=== PATIENT | male | born 1960 | race Caucasian/White ===

== ENCOUNTER 2023-09-26 10:11 | Emergency (ER) | payer OTHER, SELFPAY ==
[2023-09-26] VITALS (14 sets, daily range): BP systolic 92–119; BP diastolic 75–88; PULSE 138–170; RESP 16–18; TEMP 36.7; O2SAT 95–98; BMI 27.5
[2023-09-26 10:41] LABS: Lactate* 1.5 mmol/L (0.5-1.9)
[2023-09-26] MEDS: 0.9 % SODIUM CHLORIDE 1000 ml 1,000 ML IV (10:47)
[2023-09-26] MEDS: METOPROLOL TARTRATE 1 MG/ML inj 5 MG IVP (10:47)
[2023-09-26 10:50] LABS: Basophils Absolute Auto 0.02 K/uL (0.00-0.30); Basophils Percent Auto 0.3 % (0.0-3.0); Eosinophils Absolute Auto 0.09 K/uL (0.00-0.50); Eosinophils Percent Auto 1.3 % (0.0-7.0); Hematocrit 46.4 % (37.0-53.0); Hemoglobin* 15.7 gm/dL (13.5-17.5); Immature Granulocytes Abs Auto 0.01 K/uL (0.00-0.30); Immature Granulocytes Pct Auto 0.1 %; Lymphocytes Percent Auto 31.4 % (20-44); Mean Corpuscular HGB Conc 34 gm/dL (32-36); Mean Corpuscular Hemoglobin 30 pg (26-34); Mean Corpuscular Volume 90 fL (80-100); Monocytes Percent Auto 11.7 % (0.0-11.0); Neutrophils Absolute Auto 3.68 K/uL (1.7-7.0); Neutrophils Percent Auto 55.2 % (42.0-72.0); Platelet Count* 281 K/uL (140-440); RDW Coefficient of Variation % 12.8 % (11.5-15.5); Red Blood Count 5.17 m/uL (4.30-5.90); White Blood Count* 6.68 K/uL (4.50-11.00)
[2023-09-26 10:58] LABS: Albumin* 4.6 g/dL (3.3-5.0)
[2023-09-26 10:59] LABS: Chloride* 110 mmol/L (96-114); Potassium* 4.2 mmol/L (3.6-5.1); Sodium* 140 mmol/L (135-149)
[2023-09-26 11:01] LABS: Anion Gap 11 mEq/L (7-15); Aspartate Amino Transferase* 29 U/L (12-35); Bilirubin Direct* 0.3 mg/dL (0.0-0.5); Bilirubin Total* 1.5 mg/dL (0.1-1.5); Carbon Dioxide* 19 mmol/L (20-32); Creatinine* 0.9 mg/dL (0.5-1.5); Est. Creatinine Clearance* 104.32; Estimated Glomerular Filt Rate 98 ml/min; Total Protein* 7.4 g/dL (6.0-8.3)
[2023-09-26 11:02] LABS: Alanine Aminotransferase* 19 U/L (4-50); Alkaline Phosphatase* 45 U/L (40-150); Blood Urea Nitrogen* 15 mg/dL (7-30); Calcium* 8.8 mg/dL (8.4-10.6); Glucose* 128 mg/dL (60-115)
[2023-09-26 11:03] LABS: Slide Review Reflex No
[2023-09-26 11:15] LABS: Troponin I* < 0.01 ng/mL (0.01-0.04)
--- OUTSIDE RECORDS SUMMARY | 2023-09-26 11:48 | XMS_ITS | Clinical Summary ---
Author Organization [employer] [facility] Address [place], [place] [address] Care Team Providers Care Counselor Education Professor Name Role Phone Spencer Ibarra MD Unavailable Shila Omid Luna MD Primary Care Provider [phone] Allergies Active Allergy Reactions Criticality Noted Date Comments Adhesive Tape-Silicones Contact Dermatitis 01/01 Patient reports blisters Pseudoephedrine Rash,Runny Nose 10/30/2010 Azu-Hyvwqzjoa-Hn-Acetamin ophen Rash 09/25/2011 Medications Medication Sig Dispensed Refills Start Date End Date Status multivitamin (MVI) tablet Take 1 tablet by mouth once daily. 0 09/25/2011 Active aspirin chewable 81 mg chewable tabletIndications:Pa roxysmal atrial fibrillation (HC) Take 1 tablet by mouth once daily with a meal. 0 01/01/2019 Active omeprazole (PRILOSEC) 20 mg Delayed-Release capsuleIndications:g astroesophageal reflux disease Take 20 mg by mouth once daily. Active oxyCODONE (ROXICODONE) 5 mg immediate release tabletIndications:Mu ltiple lipomas Take 1-2 Tablets (5-10 mg) by mouth every 4 hours if needed for Pain. 20 Tablet 02/05/2023 Active Additional Information Patient not taking.Reported on 02/19/2023 Active Problems Problem Noted Date Diagnosed Date Eosinophilic esophagitis 01/31/2023 Inflammatory pseudotumor of colon 01/13/2023 Multiple lipomas 09/24/2012 Neck pain 09/25/2011 Atrial fibrillation Resolved Problems Problem Noted Date Diagnosed Date Resolved Date Dizzy 09/25/2011 01/11/2023 Immunizations Name Administration Dates Next Due Amb Influenza, Inact (Intrad ermal)(age 18-64 Yrs)(Flu Clinic Only) 12/30/2014 Anthrax Vaccine 01/24/2010,08/20/2009,07/15/2009 Hepatitis A (Adult) 12/20/2002, 3,08/05/2000,04/12 Hepatitis A, Unspecified 08/05/2000 Hepatitis B (Adult) 01/24/2010, 0,07/15/2009,09/03,08/05/2000 Hepatitis B, Unspecified 09/03/2000,08/05/2000 Influenza A (H1N1), Inactiva tonya (Age >=3 Years) 04/21/2009 Influenza Virus, Unspecified 01/24/2014, 02/13/2013,01/11/2012,12/15,05/02/2010,01/19/2009 Influenza, IIV3 (Age 6-35 mos) 01/19/2009 Influenza, IIV4 01/01/2019,12/03/2017,01/21/2017 Influenza, Whole Virus 01/26/2003,08/15/2002 Influenza, split (incl. caleb fied surface antigen) 11/24/2009,05/18/2006,02/18/2005 Influenza,LAIV3 Live Intrana josue (Flumist) 01/07/2009,02/14/2008,03/14/2007 MMR 03/15/1991,05/12/1981 Meningococcal Vaccine (Menomune) 02/21/1982 Oral Polio Vaccine 05/27/1984,02/21/1982, 982 Plague 11/28/1988,11/08/1983,05/17/1983 Polio Virus, Unspecified 05/27/1984 Smallpox (Vaccinia) Live [id number] 08/20/2009, Td (Age >=7 Years) 06/14/2002,06/01/2000, 992 Tdap 06/02/2021, 2,04/11/2010,04/01,06/01/2000,03/31/1992 Typhoid (injectable) 12/17/2008,08/05/2000 Typhoid Parenteral,Killed 11/16/2006,,06/14/2002,03/15,06/14/1987 Typhoid, Unspecified 08/05/2000,03/15/1991,06/13 Typhus, Historical 08/05/2000,03/15/1991, 988 Yellow Fever 08/05/2000,03/15/1991 Family History Medical History Relation Name Comments Cancer Father Brain? tumor Atrial fibrillation Mother COPD Mother Macular degeneration Mother Diabetes Paternal Grandmother Relation Name Status Comments Father Mother Paternal Grandmother Social History Tobacco Use Types Packs/Day Years Used Date Smoking Tobacco: Never Smokeless Tobacco: Never Tobacco Cessation:Counseling Given: Yes Alcohol Use Standard Drinks/Week Comments Yes 5 (1 standard drink = 0.6 oz pur e alcohol) 5-10 drinks per week PHQ-2 Answer Date Recorded PHQ-2 TOTAL SCORE 0 01/11/2023 Social Connections Answer Date Recorded Frequency of Communication with Friends and Fami ly 0 01/11/2023 Financial Resource Strain Answer Date R ecorded Difficulty of Paying Living Expenses 3 01/11/2023 Difficulty of Paying Living Expenses Not on file 01/11/2023 Food Insecurity Answer Date Recorded Worried About Running Out of Food in the Last Ye ar 1 01/11/2023 Transportation Needs Answer Date Record ed Lack of Transportation (Medical) 1 01/11/2023 Housing Stability Answer Date Recorded Unable to Pay for Housing in the Last Year 1 01/11/2023 Sex and Gender Information Value Date Recorded Sex Assigned at Not on file Gender Identity Not on file Sexual Orientation Not on file Obstetrics History Last Filed Vital Signs Vital Sign Reading Time Taken Comments Blood Pressure 126/62 02/19/2023 8:57 AM INTERNET APPLICATION DEVELOPER Pulse 80 02/19/2023 8:57 AM INTERNET APPLICATION DEVELOPER Temperature 36.5 ??C (97.7 ??F) 02/05/2023 2:00 PM CS T Respiratory Rate 16 02/19/2023 8:57 AM INTERNET APPLICATION DEVELOPER Oxygen Saturation 97% 02/19/2023 8:57 AM INTERNET APPLICATION DEVELOPER Inhaled Oxygen Concentration - - Weight 101.2 kg (223 lb) 02/19/2023 8:57 AM INTERNET APPLICATION DEVELOPER Height 188 cm (6' 2) 02/05/2023 11:46 AM INTERNET APPLICATION DEVELOPER Body Mass Index 28.63 02/05/2023 11:46 AM INTERNET APPLICATION DEVELOPER Plan of Treatment Health Maintenance Due Date Last Done Comments HIV for age 15-65 1977 Zoster (shingles) series for age 50+ (1 of 2) 2012 COVID-19 vaccine series (1 - 2022-24 season) 2022 Influenza for age 50-64 12/01/2023 01/02/20 19, 12/03/2017, 01/21/2017, Additional history exists Depression screening for age 12+ 01/12/2024 01/11/2023, 01/01/2019, 01/06/2018, Additional history exists BMI (ht and wt on same day) for age 18+ 01/30/2024 01/29/2023, 01/11/2023, 08/30/2021, Additional history exists Colonoscopy through age 75 08/10/2025 08/10/2022, Lipids for age 45-75 01/12/2028 01/11/2023, 01/01/2019, 12/29/2014, Additional history exists Tetanus booster 06/03/2031 06/02/2021, 11/30, 04/11/2010 (Completed outside of [facility]), Additional history exists Hepatitis C screening for age 18-79 Completed 12/29/2014 Tdap Completed 06/02/2021, 11/30, 04/11/2010, Additional history exists Pneumococcal series for age 6-64 Aged Out No longer eligible based on patient's age to complete this topic Procedures Procedure Name Priority Date/Time Associated Diagnosis Comments LIPID PANEL W REFLEX MEASURED LDL Routine 01/11/2023 10:38 AM CDT Encounter for screening for lipoid disorders SCAN-COLONOSCOPY 08/10/2022 8:00 AM CDT ANTI HCV Routine 12/29/2014 11:49 AM CDT Need for hepatitis C screening test from Last 3 Months or Most Recently Relevant to Health Maintenance Results * (ABNORMAL) LIPID PANEL W REFLEX MEASURED LDL ([id number]) (01/11/2023 10:38 AM CDT) Pathologist [facility] CHOLESTEROL,TOTAL 204(H) 100 - 199 mg/dL 01/11/2023 11:13 AM [facility] Comment: Cholesterol, Total Reference Ranges Desirable <200 mg/dL Borderline 200-239 mg/dL High >=240 mg/dL TRIGLYCERIDES 133 <150 mg/dL 01/11/2023 11:13 AM [facility] HDL CHOLESTEROL 41 >40 mg/dL 11:13 AM [facility] NON-HDL CHOLESTEROL 163(H) <145 mg/dl 01/11/2023 11:13 AM [facility] CHOL/HDL RATIO 4.98(H) <4.50 01/11/2023 11:13 AM [facility] LDL CHOLESTEROL 136(H) <=130 mg/dL 01/11/2023 11:13 AM [facility] VLDL CHOLESTEROL 27 <=30 mg/dL 01/11/2023 11:13 AM [facility] PROVIDER ORDERED STATUS RANDOM 01/11/2023 11:13 AM [facility] Blood BLOOD SPECIMEN / Unknown Butterfly / Unknown 01/11/2023 10:38 AM CDT 01/11/2023 10:43 AM CDT Omid Oneil MD CHEMISTR[facility] [address] [place] [address] * SCAN-COLONOSCOPY (08/10/2022 8:00 AM CDT) Narrative Procedure Note Jv Gregorio MBBS - 08/10/2022 7:11 AM CDT [facility] [address], [address], [place] [address] Patient Name: Sekou Olivarez Gender: Male Exam Date: 08/10/2022 Visit Number: [id number] Age: 61 Years Date of : 1960 Attending MD: Jv Gregorio MD Medical Record#: [id number] Procedure: Colonoscopy Indications: Colorectal cancer screening Referring MD: Referral Self Primary MD: Rafa Martines MD Medications: Intra Procedure Medications: Patient received monitored anesthesia care. Complications: No immediate complications Procedure: An examination of the heart and lungs was performed and found to be withinacceptable limits. . The patient was therefore deemed a reasonablecandidate for endoscopy and sedation. The risks and benefits of the procedure were explained to the patient.After obtaining informed consent, the patient received monitoredanesthesia care and I passed the scope without difficulty via the rectum to the cecum. The appendiceal orificeand ic valve were identified. The scope was retroflexed during theexamination The quality of the prep was good (Scot/Gat Split). This was a complete examination throughout the entire colon. Findings: Polyp location: cecum. Quantity: 1. Size: 8 mm. Polyp shape: sessile. Maneuver: polypectomy was performed with a cold snare. Removal: complete. Retrieval: complete. Bleeding: none. Polyp location: sigmoid. Quantity: 1. Size: 11-15 mm. Polyp shape:pedunculated. Maneuver: polypectomy was performed with a hot snare . Removal: complete. Retrieval: complete. Bleeding: none. 1 hemoclip placed at sigmoid polypectomy site to prevent post- polypectomybleeding. Diverticulosis. Location: - sigmoid. Quantity: few. Noinflammation present. Hemorrhoids. Internal hemorrhoids without bleeding. Impression: Colorectal polyps Diverticulosis of colon without diverticulitis Hemorrhoids, internal Preliminary Plan: The patient and their physician will receive a copy of the pathologyreport as well as pathology-based recommendations for future screening orsurveillance. Pathology Results: A: COLON, SIGMOID, POLYP: 1. Tubular adenoma which is an advanced adenoma due to size (seecomment) 2. Negative for high grade dysplasia and invasive malignancy 3. Per the colonoscopy report: a. Polyp size: 11-15 mm b. Resection: Complete c. Retrieval: Complete B: COLON, CECUM, POLYP: 1. Inflammatory polyp 2. Negative for dysplasia COMMENTS A. Advanced adenoma of the colorectum is defined by the [employer] Collegeof Gastroenterology (ACG) as an adenoma that is 1 cm or more in size,contains an appreciable villous component, or has high grade dysplasia(Shlomo GARZA; Polyp Guideline: Diagnosis, Treatment, and Surveillance forPatients with Colorectal Polyps. Am J [id number];95(11):8218-5543). This polyp qualifies as such. Patients withadvanced adenomas are at increased risk for synchronous and metachronousadditional advanced adenomas. Appropriate follow-up is suggested. MICROSCOPIC A: Performed B: Performed Electronically signed by: Estee Aguirre MD Interpreted at [facility], [address] [place] [address] Orders Instruction(s)/Education: Instruction/Education Timeframe Assessment Colon Polyps K63.5 Diverticulosis/Diverticulitis K57.30 Hemorrhoids K64.8 Final Plan: Repeat colonoscopy in 3 years. We will attempt to contact you at appropriate intervals via U.S. mail. Wemay not be able to find you or contact you at that time, therefore youshould know that the responsibility for following our recommendation restswith you. If you don't hear from us at the time your procedure is due,please contact our office to schedule an appointment. If your contactinformation should change, please contact our office so that we can updateyour record. _Electronically signed by: Jv Gregorio MD 08/10/2022 cc: Rafa Martines MD Jv HOLGUIN OTHER * ANTI HCV [[id number]] (12/29/2014 11:49 AM CDT) HEPATITIS C ANTIBODY Non-Reacti ve Non-Reacti ve 12/29/2014 4:32 PM CDT [facility] Blood specimen (specimen) BLOOD SPECIMEN / Unknown Venipuncture / Unknown 12/29/2014 11:49 AM CDT 12/29/2014 11:49 AM CDT Narrative [facility] [employer] [facility] - 12/29/2014 4:32 PM CDT Antibodies to HCV not detected; does not exclude the possibility of exposure to HCV. Truman Givens MD [facility] [address] [place] [address], [place] from Last 3 Months or Most Recently Relevant to Health Maintenance Advance Directives * Full Code (Latest Code Status on File) Date Activated Date Inactivated Comments 02/05/2023 11:16 AM 02/05/2023 4:57 PM Question Answer Comments Code Status Discussion: Discussed Care Teams Counselor Education Professor Relationship Specialty Start Date End Date Omid Oneil MD [address] [place] [address] PCP - General Family Practice 01/13/23 Spencer Ibarra MD Family Practice 08/15/16
--- OUTSIDE RECORDS SUMMARY | 2023-09-26 11:49 | XMS_ITS | Continuity of Care Document ---
Author Name [facility] Organization [facility] Care Team Providers Care Escalation Engineer Name Role Phone [facility] Unavailable Unavailable Problems Combined list of problems from [facility] and [facility] facilities. It does not include entries that were removed or entered in error. Problem Status Onset Date Problem Type Date of Resolution Comments Source Venous Insufficiency * (ICD-9-CM 459.81) Active Condition [facility] Medications Combined list of outpatient medications from [facility] facilities.Medications provided include 1) outpatient medications from the last 15 months, and 2) patient-reported medications. Medication Details Route Status Patient Instructions Prescription Expires Prescription Number Last Dispense Date Ordering Provider Order Date Order Qty Source ASPIRIN 81MG TAB,EC TAKE ONE TABLET BY MOUTH EVERY DAY ORALLY ACTIVE MACDHARA MAST KHALIDA K 2010 [facility] MULTIVITAMI NS W/MINERALS CAP/TAB TAKE ONE TABLET BY MOUTH EVERY DAY ORALLY ACTIVE MAC,DHARA KHALIDA K 2010 [facility] OMEPRAZOLE (omeprazole ), 20 MG, CAPSULE DR ORAL, [employer], 1000 ea. BOTTLE Cancele d [id number] : 2023 0 Pharmac y Data Transac tion Service Facilit y OMEPRAZOLE (omeprazole ), 20 MG, CAPSULE DR ORAL, [employer], 1000 ea. BOTTLE Active [id number] 2023 90 Pharmac y Data Transac tion Service Facilit y OMEPRAZOLE (omeprazole ), 20 MG, CAPSULE DR ORAL, [employer], 1000 ea. BOTTLE Active [id number] 2023 90 Pharmac y Data Transac tion Service Facilit y Allergies, Adverse Reactions, Alerts Combined list of allergies from [facility] and [facility] facilities. It does not include entries that were removed or entered in error. Substance Category Reaction Severity Reaction type Status Date Reported Comments Source PSEUDOEPHEDRI NE Propensity to adverse reactions to drug (finding) Allergic rhinitis active 1 [facility] Immunizations Combined list of available immunizations from the Department of Defense and Veterans Affairs facilities. Immunization Series Date Given Administered By Site Reaction Lot Number CVX Code Drug Supervisor [employer] Status Comments Source Influenza, seasonal, injectable, preservative free 1 2013 [id number] [employer] [place] [employer] l Rafa. (NOV) complet ed Influenza , seasonal, injectabl e, preservat shima free DoD Influenza, injectable, Madin Antonietta Canine Kidney, preservative free 11 2012 [id number] [employer] [place] [employer]. (NOV) complet ed Influenza , injectabl e, Madin Antonietta Canine Kidney, preservat shima free DoD Influenza, seasonal, injectable, preservative free 10 2011 [id number] [employer], [employer]. ([facility]) complet ed Influenza , seasonal, injectabl e, preservat shima free DoD tetanus toxoid, reduced diphtheria toxoid, and acellular pertu is vaccine, adsorbed 0 2011 [id number] 115 Sanofi Pasteur ([facility]) complet ed tetanus toxoid, reduced diphtheri a toxoid, and acellular pertussis vaccine, adsorbed DoD Influenza, seasonal, injectable, preservative free 1 2010 [id number] 140 Sanofi Pasteur ([facility]) complet ed Influenza , seasonal, injectabl e, preservat shima free DoD INFLUENZA, UNSPECIFIED FORMULATION 2010 88 complet ed [facility] anthrax vaccine 3 2009 [id number] [employer] [place] ([facility]) complet ed anthrax vaccine DoD hepatitis B vaccine, adult dosage 3 2009 [id number] 43 Smithine (SKB) complet ed hepatitis B vaccine, adult dosage DoD influenza virus vaccine, split virus (incl. purified surface antigen)-reti red CODE 1 2009 [id number] 15 Sanofi Pasteur ([facility]) complet ed influenza virus vaccine, split virus (incl. purified surface antigen)- retired CODE DoD anthrax vaccine 2 2009 [id number] 24 [facility] [place] ([facility]) complet ed anthrax vaccine DoD hepatitis B vaccine, adult dosage 2 2009 [id number] 43 SmithKline (SKB) complet ed hepatitis B vaccine, adult dosage DoD vaccinia (smallpox) vaccine 2 2009 VV04-00 [id number] 75 [facility] ([facility]) complet ed vaccinia (smallpox ) vaccine DoD vaccinia (smallpox) vaccine 1 2009 VV04-00 3A 75 [facility] (ZEE) complet ed vaccinia (smallpox ) vaccine DoD anthrax vaccine 1 2009 [id number] [facility] [employer] [facility] ([facility]) complet ed anthrax vaccine DoD hepatitis B vaccine, adult dosage 1 2009 [id number] 43 [facility] (SKB) complet ed hepatitis B vaccine, adult dosage DoD Novel influenza-H1N 1-09, injectable 1 2009 [id number] 127 [facility] [employer], [employer]. ([facility]) complet ed Novel influenza -[id number], injectabl e DoD TDAP 2009 115 complet ed [place] [facility] influenza virus vaccine, live, attenuated, for intranasal use 1 2008 [id number] 111 [employer] ([facility]) complet ed influenza virus vaccine, live, attenuate d, for intranasa l use [facility] typhoid Vi capsular polysaccharid e vaccine 1 2008 [id number] 101 Sanofi Pasteur ([facility]) complet ed typhoid Vi capsular polysacch aride vaccine [facility] influenza virus vaccine, live, attenuated, for intranasal use 1 2007 [id number] 111 [employer] (MED) complet influenza virus vaccine, live, attenuate d, for intranasa l use [facility] influenza virus vaccine, live, attenuated, for intranasal use 1 2006 [id number] 111 [employer] (MED) complet ed influenza virus vaccine, live, attenuate d, for intranasa l use [facility] typhoid vaccine, parenteral, other than acetone-kille d, dried 1 2006 [id number] 41 Sanofi Pasteur ([facility]) complet ed typhoid vaccine, parentera l, other than acetone-k illed, dried [facility] influenza virus vaccine, split virus (incl. purified surface antigen)-reti red CODE 1 2006 [id number] 15 Sanofi Pasteur ([facility]) complet influenza virus vaccine, split virus (incl. purified surface antigen)- retired CODE DoD influenza virus vaccine, split virus (incl. purified surface antigen)-reti red CODE 1 2004 [id number] 15 [place] [facility] ([facility]) complet ed influenza virus vaccine, split virus (incl. purified surface antigen)- retired CODE DoD typhoid vaccine, parenteral, other than acetone-kille d, dried 1 2004 [id number] 41 [place] [facility] ([facility]) complet ed typhoid vaccine, parentera l, other than acetone-k illed, dried DoD influenza virus vaccine, whole virus 0 2002 [id number] 16 [place] [facility] Paste[employer] ([facility]) complet ed influenza virus vaccine, whole virus DoD hepatitis A vaccine, adult dosage 2 2002 [id number] Merck (MSD) complet ed hepatitis A vaccine, adult dosage DoD influenza virus vaccine, whole virus 0 2002 [id number] 16 [place] [facility] [employer] ([facility]) complet ed influenza virus vaccine, whole virus DoD tetanus and diphtheria toxoids, adsorbed, preservative free, for adult use (2 Lf of tetanus toxoid and 2 Lf of diphtheria toxoid) 0 2002 [id number] 09 [place] [facility] [employer] ([facility]) complet ed tetanus and diphtheri a toxoids, adsorbed, preservat shima free, for adult use (2 Lf of tetanus toxoid and 2 Lf of diphtheri a toxoid) DoD typhoid vaccine, parenteral, other than acetone-kille d, dried 0 2002 [id number] 41 [place] [facility] [employer] ([facility]) complet ed typhoid vaccine, parentera l, other than acetone-k illed, dried DoD hepatitis A vaccine, adult dosage 1 2002 [id number] Merck (MSD) complet ed hepatitis A vaccine, adult dosage DoD tetanus and diphtheria toxoids, adsorbed, preservative free, for adult use (2 Lf of tetanus toxoid and 2 Lf of diphtheria toxoid) 0 2000 UNK 09 Unknown (UNK) comple t ed tetanus and diphtheri a toxoids, adsorbed, preservat shima free, for adult use (2 Lf of tetanus toxoid and 2 Lf of diphtheri a toxoid) DoD hepatitis A vaccine, adult dosage 1 1991 UNK 52 Unknown (UNK) comple t ed hepatitis A vaccine, adult dosage DoD measles, mumps and rubella virus vaccine 0 1990 UNK 03 Unknown (UNK) comple t ed measles, mumps and rubella virus vaccine DoD yellow fever vaccine 0 1990 UNK 37 Unknown (UNK) comple t ed yellow fever vaccine DoD plague vaccine 3 1988 UNK 23 Unknown (UNK) comple t ed plague vaccine DoD trivalent poliovirus vaccine, live, oral 0 1984 UNK 02 Unknown (UNK) comple t ed trivalent polioviru s vaccine, live, oral DoD plague vaccine 2 1983 UNK 23 Unknown (UNK) comple t ed plague vaccine DoD plague vaccine 1 1983 UNK 23 Unknown (UNK) comple t ed plague vaccine DoD trivalent poliovirus vaccine, live, oral 0 1981 UNK 02 Unknown (UNK) comple t ed trivalent polioviru s vaccine, live, oral DoD meningococcal polysaccharid e vaccine (MPSV4) 0 1981 UNK 32 Unknown (UNK) comple t ed meningoco ccal polysacch aride vaccine (MPSV4) DoD trivalent poliovirus vaccine, live, oral 0 1981 02 Unknown (UNK) comple t ed trivalent polioviru s vaccine, live, oral DoD measles, mumps and rubella virus vaccine 0 1981 03 Unknown (UNK) comple t ed measles, mumps and rubella virus vaccine DoD Encounters Combined list of: 1) Encounters from Department of Veterans Affairs facilities going back up to thelast 18 months. 2) Encounters from the Department of Defense facilities going back up to 280 months. Location Location Details Encounter Type Encounter Number Reason For Visit Attending Provider ADM Date DC Date Status Disposition Source [facility](Aer ospace Medicine (O)) OUTPATIENT [id number] Notes Entered by: LA MILLER 04 Oct 2014 1019 ------- ------- ------- ------- -- Cough/R unny Nose x1 week LA MILLER 10/04 Released w/o Limitations [facility](A erospac e Medicin e (FSO)) [facility](Aer ospace Medicine (FSO)) OUTPATIENT [id number] Notes Entered by: LA MILLER 11 Oct 2014 1034 ------- ------- ------- ------- -- Low back pain LA MILLER 10/11 Released w/o Limitations [facility](Carlo erospac erendira Medicin erendira (FSO)) Social History Combined list of available smoking, tobacco, and other social history from Department of Defense and Veterans Affairs facilities. Social History Type Response Date Comment Sourc erendira Tobacco smoking status [facility] LIFETIME NON-TOBACCO USER 10/27/2010 [facility] This section is an empty social history section. DoD
[2023-09-26] MEDS: PROPOFOL 10 MG/ML INJ 200 MG IVP (11:50)
--- NOTE | 2023-09-26 11:58 | ED.GENADULT ---
HPI - General Adult General Chief complaint: Unspecified Complaint, Adult Stated complaint: AFIB Time Seen by Provider: 09/26/23 10:28 Source: patient Mode of arrival: ambulatory Limitations: no limitations History of Present Illness HPI narrative: 62-year-old male coming in today complaining of palpitations, states that he believes he is in atrial fibrillation. States that this happened to him once before 10 years ago. He states that about 2 hours ago he felt his heart start to race, it made him feel slightly nauseated, lightheaded. He denies any chest pain. He states that he feels very mildly short of breath with physical activity for the last 2 hours. He has not vomited. He denies any recent illness. Current medications include omeprazole for eosinophilic esophagitis and a daily baby aspirin. He states that he does not have a history of hypertension and anticoagulation was not necessary after his bout of AFib 10 years ago. Related Data Home Medications ?Medication ?Instructions ?Recorded ?Confirmed aspirin 81 mg chewable tablet 81 mg PO DAILY 09/26/23 09/26/23 (Aspirin Childrens) omeprazole 20 mg capsule,delayed 20 mg PO DAILY 09/26/23 09/26/23 release Allergies Allergy/AdvReac Type Severity Reaction Status Date / Time pseudoephedrine Allergy Verified 09/26/23 10:21 [From Sudafed] Review of Systems Status of ROS: Reports: 10 or more systems reviewed and unremarkable except as noted in History and below [facility] Social History Smoking Status: Never smoker How often do you have a drink containing alcohol: 4 or more times a week How many standard drinks containing alcohol do you have on a typical day: 1 or 2 How often do you have six or more drinks on one occasion: Never AUDIT-C Alcohol total score: 4 Non-prescribed substance use: denies use service: Yes Exam Narrative: Exam Narrative: Well-nourished well-developed patient in no acute distress. Alert and oriented. Answers questions appropriately. Mood and affect are appropriate. Thoughts are goal oriented and rational. No tangential or magical thinking noted. Patient speaks in full sentences without needing to catch his breath. HEENT: Normocephalic atraumatic. Pupils are equally round reactive to light. Extraocular muscles are intact. Conjunctivae are moist without any icterus noted. Moist mucous membranes. Posterior pharynx is normal. Neck is soft without any lymphadenopathy or thyromegaly. No masses are appreciated. Cardiovascular: Heart is irregularly irregular, tachycardic, S1 and S2 are present without any murmurs. Lungs: Clear to auscultation bilaterally no wheezes rhonchi or rales are appreciated. Patient takes deep breaths without any discomfort. Abdomen: Soft and nontender nondistended with normal bowel sounds. Extremities: Bilateral lower extremities are without edema. Skin: Well perfused without any obvious rashes. Patient has a significant number of lipomas across the abdominal wall and extremities. Const: Vital Signs, click to edit/add: Vital Signs - 24 hr 09/26/23 10:15 09/26/23 10:20 09/26/23 10:28 Temperature 98.0 F Pulse Rate [Right Pulse Oximeter] 170 H 165 H Respiratory Rate 18 18 Blood Pressure [Ri ght Upper Arm] 119/86 108/85 Pulse Oximetry 97 97 98 Oxygen Delivery Me thod Room Air Room Air 09/26/23 10:35 09/26/23 10:39 09/26/23 10:40 Temperature Pulse Rate [Right Pulse Oximeter] 170 H Respiratory Rate 16 Blood Pressure [Ri ght Upper Arm] 103/88 Pulse Oximetry 98 97 96 Oxygen Delivery Me thod Room Air 09/26/23 10:45 09/26/23 10:48 09/26/23 10:50 Temperature Pulse Rate [Right Pulse Oximeter] Respiratory Rate Blood Pressure [Ri ght Upper Arm] Pulse Oximetry 96 96 96 Oxygen Delivery Me thod 09/26/23 10:50 09/26/23 10:52 09/26/23 11:00 Temperature Pulse Rate [Right Pulse Oximeter] 140 H Respiratory Rate 18 Blood Pressure [Ri ght Upper Arm] 102/81 Pulse Oximetry 97 95 97 Oxygen Delivery Me thod 09/26/23 11:00 09/26/23 11:02 09/26/23 11:10 Temperature Pulse Rate [Right Pulse Oximeter] 149 H 144 H Respiratory Rate 18 16 Blood Pressure [Ri ght Upper Arm] 94/79 92/75 Pulse Oximetry 96 96 97 Oxygen Delivery Il thod Room Air Room Air 09/26/23 11:11 Temperature Pulse Rate [Right Pulse Oximeter] 138 H Respiratory Rate 18 Blood Pressure [Ri ght Upper Arm] 92/75 Pulse Oximetry 97 Oxygen Delivery Me thod Room Air Course Course ED Course: EKG, read by me, shows atrial fibrillation with a pulse of 164. Patient's pulse does fluctuate between 160 and 180. IV is established and he received a L of normal saline 5 mg of IV metoprolol. This brings his pulse to the 140s. However his blood pressure remains low with a systolic of around 100-110. Blood work was unremarkable. After the pulse coming down into the 140s patient did feel a little less lightheaded but still felt those palpitations. He was not nauseated. Given that his blood pressure remained quite low we discussed medical cardioversion versus electric cardioversion. Patient has been symptomatic for only 2 hours. A because he is symptomatic and his blood pressure is low we decided to proceed with electric cardioversion. Risks and benefits were discussed him patient wished to proceed. Procedure note: Anesthesia was provided by Dr. Macias. With proper anesthesia patient was cardioverted after 1 attempt at 150 joules. Patient tolerated the procedure well. Repeat EKG shows normal sinus rhythm with a pulse of 84. Patient recuperated from anesthesia without incident. Vital Signs Vital signs: Initial Vital Signs Temperature 98.0 F 09/26/23 10:15 Temperature Source Temporal Artery Scan 09/26/23 10:15 Pulse Rate 170 H 09/26/23 10:15 Pulse Rhythm Irregularly Irregular 09/26/23 10:15 Pulse Strength 3+ Normal 09/26/23 10:15 Respiratory Rate 18 09/26/23 10:15 Blood Pressure 119/86 09/26/23 10:15 Blood Pressure Mean 97 09/26/23 10:15 Blood Pressure Position Sitting 09/26/23 10:15 Pulse Oximetry 97 09/26/23 10:15 Oxygen Delivery Method Room Air 09/26/23 10:15 Vital Signs Temperature 98.0 F 09/26/23 10:15 Pulse Rate 170 H 09/26/23 10:15 Respiratory Rate 18 09/26/23 10:15 Blood Pressure 119/86 09/26/23 10:15 Pulse Oximetry 97 09/26/23 10:15 Oxygen Delivery Method Room Air 09/26/23 10:15 Temperature 98.0 F 09/26/23 10:15 Pulse Rate 138 H 09/26/23 11:11 Respiratory Rate 18 09/26/23 11:11 Blood Pressure 92/75 09/26/23 11:11 Pulse Oximetry 97 09/26/23 11:11 Oxygen Delivery Method Room Air 09/26/23 11:11 Medications Administered Medications: Discontinued Medications Generic Name Dose Route Start Last Admin Trade Name Sravanthi PRN Reason Stop Dose Admin Sodium Chloride 1,000 mls @ 1,000 mls/hr 09/26/23 10:30 09/26/23 10:47 0.9 % Sodium Chloride 1000 Ml IV 09/26/23 11:29 Infused .Q1H SANNA Infusion Metoprolol Tartrate 5 mg 09/26/23 10:28 09/26/23 10:47 Metoprolol Tartrate 1 Mg/Ml Inj IVP 09/26/23 10:29 5 mg ONCE ONE Administration Medical Decision Making MDM Narrative Medical decision making narrative: 62-year-old male presenting with AFib with RVR. Status post cardioversion per above. Patient's [id number] score is 0. At this time will keep the patient on his regular daily aspirin. However if this occurs again may need to reconsider that decision. I do want him to follow up with his primary care provider this coming week to see how he is feeling. Patient was in agreement and had no other questions. Lab Data Lab results reviewed: Yes I reviewed the patient's lab results Labs: Lab Results 09/26/23 Range/Units 10:30 WBC 6.68 (4.50-11.00) K/uL RBC 5.17 (4.30-5.90) m/uL Hgb 15.7 (13.5-17.5) gm/dL Hct 46.4 (37.0-53.0) % MCV 90 (80-100) fL MCH 30 (26-34) pg MCHC 34 (32-36) gm/dL RDW Coeff of Braden 12.8 (11.5-15.5) % Plt Count 281 (140-440) K/uL Neut % (Auto) 55.2 (42.0-72.0) % Lymph % (Auto) 31.4 (20-44) % [place] % (Auto) 11.7 H (0.0-11.0) % Eos % (Auto) 1.3 (0.0-7.0) % Baso % (Auto) 0.3 (0.0-3.0) % Neut # (Auto) 3.68 (1.7-7.0) K/uL Lymph # (Auto) 2.10 (0.90-2.90) K/uL [place] # (Auto) 0.80 (0.00-0.90) K/UL Eos # (Auto) 0.09 (0.00-0.50) K/uL Baso # (Auto) 0.02 (0.00-0.30) K/uL Abs Immat Gran (auto) 0.01 (0.00-0.30) K/uL Imm/Tot Granulo (auto) 0.1 % Sodium 140 (135-149) mmol/L Potassium 4.2 (3.6-5.1) mmol/L Chloride 110 (96-114) mmol/L Carbon Dioxide 19 L (20-32) mmol/L Anion Gap 11 (7-15) mEq/L BUN 15 (7-30) mg/dL Creatinine 0.9 (0.5-1.5) mg/dL Estimated Creat Clear 104.32 Estimated GFR 98 ml/min Glucose 128 H (60-115) mg/dL Lactate 1.5 (0.5-1.9) mmol/L Calcium 8.8 (8.4-10.6) mg/dL Magnesium 2.0 (1.5-2.6) mg/dL Total Bilirubin 1.5 (0.1-1.5) mg/dL Direct Bilirubin 0.3 (0.0-0.5) mg/dL AST 29 (12-35) U/L ALT 19 (4-50) U/L Alkaline Phosphatase 45 (40-150) U/L Troponin I < 0.01 L (0.01-0.04) ng/mL Total Protein 7.4 (6.0-8.3) g/dL Albumin 4.6 (3.3-5.0) g/dL TSH 0.981 (0.270-4.20) uIU/mL ECG Data Attestation: I personally reviewed and interpreted this ECG as follows: Discharge Plan Discharge Clinical Impression: Atrial fibrillation with rapid ventricular response Patient Disposition: Home, Self-Care Condition: Improved Additional Instructions: Make sure to stay well-hydrated any nutritious meals for the next several days. I do think you need to follow-up with your primary care provider to discuss your ER visit today and make sure that you are still feeling well in the next 1-2 weeks. Should you go into atrial fibrillation again, return to the ER. Continue daily baby aspirin. Prescriptions: No Action omeprazole 20 mg capsule,delayed release(DR/EC) 20 mg PO DAILY aspirin [Aspirin Childrens] 81 mg tablet,chewable 81 mg PO DAILY Follow Up/Referrals: Rafa Martines MD [Primary Care Provider] - Stand Alone Forms: [employer] Info Instructions
[2023-09-26 12:02] LABS: Thyroid Stimulating Hormone* 0.981 uIU/mL (0.270-4.20)
== END 2023-09-26 12:28 | disposition home or self-care (01) ==
PROVIDERS: Emergency Provider Family Medicine; PCP Family Medicine
DX: I48.20 Chronic atrial fibrillation, unspecified (principal)
CPT/HCPCS: 92960; 36415; 80048; 80076; 83605; 83735; 84443; 84484; 85025; 93005; 94761; 99156; 99284; 99291; J2704; J7030